=== PATIENT | female | born 1995 | race Hispanic/Latino ===

== ENCOUNTER 2019-11-29 22:47 | Emergency (ER) | payer BC ==
[2019-11-29] MEDS ORDERED: ONDANSETRON 4 MG/2 ML VIAL ONE (23:27)
[2019-11-29] MEDS ORDERED: NA CHLORIDE 0.9% 1,000 ML ONE (23:27)
[2019-11-29] MEDS ORDERED: ACETAMINOPHEN 500 MG TAB ONE (23:27)
[2019-11-29 23:28] LABS: Absolute Lymphocytes (CBC) 0.4 K/uL (0.7-4.9); Basophils % 0.1 % (0-1.3); Hematocrit 44.8 % (36.0-45.0); Lymphocytes % 3.4 % (15.3-44.8); MPV 10.3 fL (7.6-11.3); RBC Red Blood Cell Count 5.08 M/uL (3.86-4.86)
[2019-11-29 23:43] LABS: Potassium 3.6 mmol/L (3.5-5.1)
[2019-11-30] MEDS ORDERED: ONDANSETRON 4 MG/2 ML VIAL ONE (00:10)
[2019-11-30] MEDS ORDERED: NA CHLORIDE 0.9% 1,000 ML ONE (00:14)
--- NOTE | 2019-11-30 00:33 | ER ---
Nurse's Notes [facility] Name: Christine German Age: 24 yrs Sex: Female : 1995 Arrival Date: 11/29/2019 Time: 22:49 Bed 5 Private MD: Diagnosis: Acute upper respiratory infection, unspecified Presentation: 11/29 23:11 Presenting complaint: Patient states: she was seen at [facility] earlier today and was bb tested for strep, flu and had a chest xray but everything was normal but she is having body aches, sore throat, headache and has not been able to hold anything down today. Transition of care: patient was not received from another setting of care. Onset of symptoms was November 29, 2019. Risk Assessment: Do you want to hurt yourself or someone else? Patient reports no desire to harm self or others. Initial Sepsis Screen: Does the patient meet any 2 criteria? No. Patient's initial sepsis screen is negative. Does the patient have a suspected source of infection? No. Patient's initial sepsis screen is negative. Care prior to arrival: None. 23:11 Method Of Arrival: Ambulatory bb 23:11 Acuity: MARTHA 3 bb Triage Assessment: 23:14 General: Appears in no apparent distress. Behavior is calm, cooperative. Pain: bb Complains of pain in headache Pain currently is 8 out of 10 on a pain scale. Neuro: Level of Consciousness is awake, alert, obeys commands, Oriented to person, place, time, situation. Cardiovascular: Heart tones S1 S2 present Capillary refill < 3 seconds Patient's skin is warm and dry. Respiratory: Respiratory effort is even, unlabored, Respiratory pattern is regular, Breath sounds are clear bilaterally. GI: Abdomen is non-distended, Reports vomiting. Derm: Skin is pink, warm \T\ dry. Musculoskeletal: Circulation, motion, and sensation intact. 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 - Social history:: Smoking status: Patient/guardian denies using tobacco. - Ebola Screening: : No symptoms or risks identified at this time. Screenin:16 Abuse screen: Denies threats or abuse. Nutritional screening: No deficits noted. bb Tuberculosis screening: No symptoms or risk factors identified. Fall Risk None identified. Assessment: 23:16 Reassessment: No changes from previously documented assessment. see triage assessment. bb GI: Reports vomiting. 23:46 Reassessment: Patient is alert, oriented x 3, equal unlabored respirations, skin bb warm/dry/pink. pt resting quietly, IV site intact, patent, with fluids infusing, awaiting diagnostic results, family at bedside. 11/30 00:14 Reassessment: pt states she is still feeling nauseous Lisa Encinas SUPERVISOR PRODUCT INSPECTION notified pt bb medicated see JAN. 01:09 Reassessment: pt states she is feeling better, her headache is better, pt verbalized bb understanding of and agrees to plan of care discharge instructions given pt ambulated with steady gait to exit accompanied by family. Vital Signs: 11/29 23:14 BP 127 / 59; Pulse 134; Resp 18 S; Temp 98.6(O); Pulse Ox 100% on R/A; Weight 90.72 kg bb (R); Height 5 ft. 2 in. (157.48 cm) (R); Pain 8/10; 11/30 00:14 BP 114 / 77; Pulse 117; Resp 16 S; Pulse Ox 100% on R/A; bb 11/29 23:14 Body Mass Index 36.58 (90.72 kg, 157.48 cm) bb ED Course: 11/29 22:49 Patient arrived in ED. cf2 22:56 Lisa Encin[facility]C [facility] kb 22:56 Justice Rubio MD is Attending Physician. kb 23:11 Twila Rome, GORDON is Primary Nurse. bb 23:11 Inserted saline lock: 20 gauge in right antecubital area, using aseptic technique. mt Blood collected. 23:14 Triage completed. bb 23:14 Arm band placed on Patient placed in an exam room, on a stretcher, on pulse oximetry. bb Family accompanied patient. 23:16 Initial lab(s) drawn, by ED staff, sent to lab. Flu and/or RSV swab sent to lab. bb 23:16 Patient has correct armband on for positive identification. Placed in gown. Bed in low bb position. Call light in reach. Side rails up X 1. Adult w/ patient. Pulse ox on. NIBP on. 11/30 01:10 No provider procedures requiring assistance completed. IV discontinued, intact, bb bleeding controlled, No redness/swelling at site. Pressure dressing applied. Administered Medications: 11/29 23:35 Drug: NS 0.9% 1000 ml Route: IV; Rate: 1000 ml; Site: right antecubital; bb 11/30 00:13 Follow up: IV Status: Completed infusion; IV Intake: 1000ml bb 11/29 23:35 Drug: Zofran 4 mg Route: IVP; Site: right antecubital; bb 11/30 00:41 Follow up: Response: No adverse reaction bb 00:13 Drug: Tylenol 1000 mg Route: PO; bb 00:41 Follow up: Response: No adverse reaction bb 00:13 Drug: NS 0.9% 1000 ml Route: IV; Rate: 1000 ml; Site: right antecubital; bb 01:09 Follow up: IV Status: Completed infusion; IV Intake: 1000ml bb 00:13 Drug: Zofran 4 mg Route: IVP; Site: right antecubital; bb 01:09 Follow up: Response: No adverse reaction bb Intake: 00:13 IV: 1000ml; Total: 1000ml. bb 01:09 IV: 1000ml; Total: 2000ml. bb Outcome: 00:33 Discharge ordered by . kb 01:10 Discharged to home ambulatory, with family. bb 01:10 Condition: stable 01:10 Discharge instructions given to patient, Instructed on discharge instructions, follow up and referral plans. medication usage, Demonstrated understanding of instructions, follow-up care, medications, Prescriptions given X 1. 01:11 Patient left the ED. bb Signatures: Lisa Encinas, RENETTA-C Twila Kraft RN RN Kasia Candelaria mt, [place] cf2
--- NOTE | 2019-11-30 00:34 | EDPHYS ---
Physician Documentation [facility] Name: Christine German Age: 24 yrs Sex: Female : 1995 Arrival Date: 11/29/2019 Time: 22:49 Bed 5 Private MD: ED Physician Justice Rubio HPI: 11/30 00:20 This 24 yrs old Female presents to ER via Ambulatory with complaints of Flu kb Symptoms, Vomiting. 00:20 The patient has not experienced similar symptoms in the past. The patient has been kb recently seen by a physician: earlier today, with similar presenting complaints, lab tests were done, X-rays were performed, [facility], CXR results reviewed, negative. 00:20 The patient or guardian reports cough, that is intermittent, described as moderate, flu kb symptoms, arthralgias, low-grade fever, myalgias, no appetite. Onset: The symptoms/episode began/occurred this morning. Severity of symptoms: At their worst the symptoms were moderate, in the emergency department the symptoms are unchanged. Modifying factors: The symptoms are alleviated by nothing, the symptoms are aggravated by nothing. Associated signs and symptoms: Pertinent positives: fever, nausea, rhinorrhea, sore throat, vomiting. Pt reports cough, body aches, chills, fever, headache, sore throat, nausea and vomiting since this morning. Reports she was seen at [facility] and tested negative for flu and strep and had a negative CXR. Came in tonight because she hasn't been able to keep anything down all day and her heart rate is elevated.. 00:23 Her niece had flu and strep last week. 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 - Social history:: Smoking status: Patient/guardian denies using tobacco. - Ebola Screening: : No symptoms or risks identified at this time. ROS: 11/30 00:07 Neck: Negative for injury, pain, and swelling, Cardiovascular: Negative for chest pain, kb palpitations, and edema, Back: Negative for injury and pain, : Negative for injury, bleeding, discharge, and swelling, MS/Extremity: Negative for injury and deformity, Skin: Negative for injury, rash, and discoloration. Constitutional: Positive for body aches, chills, fatigue, fever, malaise. ENT: Positive for rhinorrhea, sinus congestion, sore throat. Respiratory: Positive for cough, Negative for dyspnea on exertion, hemoptysis, orthopnea, pleurisy, shortness of breath, sputum production, wheezing. Abdomen/GI: Positive for nausea and vomiting. Neuro: Positive for headache. Exam: 00:10 Constitutional: This is a well developed, well nourished patient who is awake, alert, kb and in no acute distress. Head/Face: Normocephalic, atraumatic. ENT: Nares patent. No nasal discharge, no septal abnormalities noted. Tympanic membranes are normal and external auditory canals are clear. Oropharynx with no redness, swelling, or masses, exudates, or evidence of obstruction, uvula midline. Mucous membranes moist. Neck: Trachea midline, no thyromegaly or masses palpated, and no cervical lymphadenopathy. Supple, full range of motion without nuchal rigidity, or vertebral point tenderness. No Meningismus. Chest/axilla: Normal chest wall appearance and motion. Nontender with no deformity. No lesions are appreciated. Cardiovascular: Regular rate and rhythm with a normal S1 and S2. No gallops, murmurs, or rubs. Normal PMI, no JVD. No pulse deficits. Respiratory: Lungs have equal breath sounds bilaterally, clear to auscultation and percussion. No rales, rhonchi or wheezes noted. No increased work of breathing, no retractions or nasal flaring. Abdomen/GI: Soft, non-tender, with normal bowel sounds. No distension or tympany. No guarding or rebound. No evidence of tenderness throughout. Skin: Warm, dry with normal turgor. Normal color with no rashes, no lesions, and no evidence of cellulitis. MS/ Extremity: Pulses equal, no cyanosis. Neurovascular intact. Full, normal range of motion. Neuro: Awake and alert, GCS 15, oriented to person, place, time, and situation. Cranial nerves II-XII grossly intact. Motor strength 5/5 in all extremities. Sensory grossly intact. Cerebellar exam normal. Normal gait. Vital Signs: 11/29 23:14 BP 127 / 59; Pulse 134; Resp 18 S; Temp 98.6(O); Pulse Ox 100% on R/A; Weight 90.72 kg bb (R); Height 5 ft. 2 in. (157.48 cm) (R); Pain 8/10; 11/30 00:14 BP 114 / 77; Pulse 117; Resp 16 S; Pulse Ox 100% on R/A; bb 11/29 23:14 Body Mass Index 36.58 (90.72 kg, 157.48 cm) bb MDM: 11/29 22:58 Patient medically screened. kb 11/30 00:06 Data reviewed: vital signs, nurses notes. Data interpreted: Pulse oximetry: on room air kb is 100 %. Interpretation: normal. Counseling: I had a detailed discussion with the patient and/or guardian regarding: the historical points, exam findings, and any diagnostic results supporting the discharge/admit diagnosis, lab results, the need for outpatient follow up, a family practitioner, to return to the emergency department if symptoms worsen or persist or if there are any questions or concerns that arise at home. 11/29 23:05 Order name: Flu; Complete Time: 23:52 kb 11/29 23:05 Order name: Strep; Complete Time: 23:53 kb 11/29 23:05 Order name: CBC with Diff; Complete Time: 01:05 kb 11/29 23:05 Order name: Basic Metabolic Panel; Complete Time: 23:45 kb 11/29 23:05 Order name: [place] Screen Profile; Complete Time: 00:03 kb 11/29 23:30 Order name: Manual Differential; Complete Time: 01:05 EDMS 11/29 23:05 Order name: IV Start; Complete Time: 23:12 kb 11/29 23:54 Order name: Throat Culture EDMS Administered Medications: 11/29 23:35 Drug: NS 0.9% 1000 ml Route: IV; Rate: 1000 ml; Site: right antecubital; bb 11/30 00:13 Follow up: IV Status: Completed infusion; IV Intake: 1000ml bb 11/29 23:35 Drug: Zofran 4 mg Route: IVP; Site: right antecubital; bb 11/30 00:41 Follow up: Response: No adverse reaction bb 00:13 Drug: Tylenol 1000 mg Route: PO; bb 00:41 Follow up: Response: No adverse reaction bb 00:13 Drug: NS 0.9% 1000 ml Route: IV; Rate: 1000 ml; Site: right antecubital; bb 01:09 Follow up: IV Status: Completed infusion; IV Intake: 1000ml bb 00:13 Drug: Zofran 4 mg Route: IVP; Site: right antecubital; bb 01:09 Follow up: Response: No adverse reaction bb Disposition: 01:28 Co-signature as Attending Physician, Justice Rubio MD. [email or web address] Disposition: 11/30/19 00:33 Discharged to Home. Impression: Acute upper respiratory infection, unspecified. - Condition is Stable. - Discharge Instructions: Upper Respiratory Infection, Adult, [id number], Viral Respiratory Infection, [id number]. - Prescriptions for Zofran 4 mg Oral Tablet - take 1 tablet by ORAL route every 6 hours As needed; 20 tablet. - Medication Reconciliation Form, Thank You Letter, Antibiotic Education, Prescription Opioid Use, Work release form form. - Follow up: Emergency Department; When: As needed; Reason: Worsening of condition. Follow up: Private Physician; When: 2 - 3 days; Reason: Recheck today's complaints, Continuance of care, Re-evaluation by your physician. Signatures: Dispatcher [employer] EDMS Lisa Encinas, LESLEE JACKSON-Justice Dillon MD MD pkl Ballard, Brenda, RN RN bb Corrections: (The following items were deleted from the chart) 00:22 00:20 The patient has not recently seen a physician, alexander munoz 01:11 00:33 11/30/2019 00:33 Discharged to Home. Impression: Acute upper respiratory bb infection, unspecified. Condition is Stable. Forms are Medication Reconciliation Form, Thank You Letter, Antibiotic Education, Prescription Opioid Use. Follow up: Emergency Department; When: As needed; Reason: Worsening of condition. Follow up: Private Physician; When: 2 - 3 days; Reason: Recheck today's complaints, Continuance of care, Re-evaluation by your physician. kb
[2019-11-30 00:58] LABS: Blood Morphology Comment NOT SEEN (NOT SEEN); Platelet Estimate ADEQ
[2019-11-30 02:55] VITALS: TEMP 98.6; O2SAT 100
[2019-11-30 02:56] VITALS: BP 114/77
== END 2019-11-30 01:11 | disposition home or self-care (01) ==
LOC: ER 22:47
DX: J06.9 Acute upper respiratory infection, unspecified (principal); Z88.0 Allergy status to penicillin
CPT/HCPCS: 96361; 87070; 85025; 80048; 36415; 86308; 87081; 87804 ×2; 96374; 99284; J7030 ×2; J2405 ×2